=== PATIENT | female | born 1970 | race Caucasian/White ===

== ENCOUNTER 2018-03-21 20:48 | Inpatient (IN) ==
[2018-03-21] MEDS ORDERED: Sod Chloride 0.9% Inj 1,000 ML IV.SIG ONE (21:48)
--- NOTE | 2018-03-21 22:04 | ED ---
HPI General Chief Complaint: Respiratory Symptoms Stated Complaint: chills/cancer pt Time Seen by Provider: 03/21/18 21:46 Source: patient Mode of arrival: ambulatory Limitations: no limitations History of Present Illness HPI Narrative: Patient comes in stating that she has a history of diabetes tubal ligation cholecystectomy sinus surgery hysterectomy. Patient has left breast cancer for which she has has been started on chemo and she has a right port in place. She follows up with Dr. Ortega Patient comes in with a 2-day history of runny nose sore throat, dry cough, chills and low-grade fever. Patient denies any active vomiting or diarrhea, also denies any abdominal pain no flank pain or back pain MD Complaint: Reports fever, cough and rhinorrhea Onset (ago): day(s) (2) Duration: intermittent Severity: mild Severity scale (1-10): 2 Relieving factors: nothing Exacerbating factors: nothing Description of mucous: Reports clear Able to tolerate fluids by mouth: Yes Context: Reports other (However this is happening 7 days after she received chemo); Denies sick contacts Associated symptoms: Reports denies other symptoms Related Data Allergies Allergy/AdvReac Type Severity Reaction Status Date / Time acetaminophen Allergy Hives Verified 03/21/18 21:33 [From Excedrin Migraine] aspirin Allergy Hives Verified 03/21/18 21:33 [From Excedrin Migraine] caffeine Allergy Hives Verified 03/21/18 21:33 [From Excedrin Migraine] meperidine [From Demerol] AdvReac Somnolence Verified 03/21/18 21:33 Review of Systems ROS: all other systems reviewed are negative PMFSH History History Provided By: Patient Medical History Medical History Breast cancer (Acute) Diabetes (Acute) FH: cholecystectomy (Acute) Tubal ligation evaluation (Acute) Surgical History Surgical History H/O sinus surgery (Acute) History of partial hysterectomy (Acute) Social History Social History Substance History: No History of Abuse Second Hand Smoke Exposure: No Smoking Status: Former smoker Tobacco Type: Cigarettes How Often Do You Have a Drink Containing Alcohol: Never Recent Travel in [facility] within the Last 8 Weeks: No Recent Out of Country Travel within the Last 8 Weeks: No Exam Narrative Exam Narrative: GENERAL: female in no acute distress . SKIN: Warm and dry. HEAD: Atraumatic. Normocephalic. EYES: Pupils equal and round. No scleral icterus. No injection or drainage. ENT: No nasal bleeding or discharge. Mucous membranes pink and moist. Mild erythema to oropharynx but without any exudate NECK: Trachea midline. No JVD. CARDIOVASCULAR: Tachycardic rate regular rhythm. no rubs or gallops RESPIRATORY: No accessory muscle use. Clear to auscultation. Breath sounds equal bilaterally. GASTROINTESTINAL: Abdomen soft, non-tender, nondistended. No rebound or guarding MUSCULOSKELETAL: Extremities without clubbing, cyanosis, or edema. No obvious deformities. NEUROLOGICAL: Awake and alert. No obvious cranial nerve deficits. Motor grossly within normal limits. Five out of 5 muscle strength in the arms and legs. Normal speech. PSYCHIATRIC: Appropriate mood and affect; insight and judgment normal. Course Initial Documented Vital Signs Temperature 100.3 F H 03/21/18 21:33 Pulse Rate 121 H 03/21/18 21:33 Respiratory Rate 16 03/21/18 21:33 Blood Pressure 131/79 03/21/18 21:33 Pulse Oximetry 96 03/21/18 21:33 Last Documented Vital Signs Temperature 100.3 F H 03/21/18 21:33 Pulse Rate 121 H 03/21/18 21:33 Respiratory Rate 16 03/21/18 21:33 Blood Pressure 131/79 03/21/18 21:33 Pulse Oximetry 96 03/21/18 21:33 Medical Decision Making [facility] Narrative Medical Screen Exam Complete: Yes Emergency Medical Condition: Yes Medical Records Medical records reviewed: Yes I reviewed the patient's medical records. Discharge Plan Physicians Team ED Provider: Eduardo Gorman Status ED Status: With Doctor
--- NOTE | 2018-03-21 22:08 | XR ---
EXAM DATE: 03/21/2018 10:05 PM EST AGE/SEX: 47 years / Female INDICATIONS: Fever CLINICAL DATA: This is the patient's initial encounter. Patient reports that signs and symptoms have been present for 1 day and indicates a pain score of 0/10. MEDICAL/SURGICAL HISTORY: Non-responsive. Non-responsive. COMPARISON: [facility], XR CHEST FRONTAL, SINGLE VIEW, 03/04/2018. . FINDINGS: A single AP view of the chest demonstrates the lungs to be symmetrically aerated without evidence of mass, infiltrate or effusion. Stable right subclavian [id number]. The cardiomediastinal contours a re unremarkable. Osseous structures are intact. CONCLUSION: 1. No acute cardiopulmonary disease. Electronically signed by: Juan Mcbride MD Board Certified Radiologist 03/21/2018 10:07 PM [facility]
[2018-03-21 22:28] LABS: Hematocrit 35.8 % (35.0-46.0); Hemoglobin 12.8 gm/dL (11.6-15.3); Mean Corpuscular HGB Conc 35.8 % (32.0-36.0); Mean Corpuscular Hemoglobin 31.3 pg (27.0-34.0); Mean Corpuscular Volume 87.5 fL (80.0-100.0); Mean Platelet Volume 7.9 fL (7.0-11.0); Platelet Count 76 th/mm3 (150-450); Red Blood Count 4.09 mil/mm3 (4.00-5.30); Red Cell Distribution Width 12.5 % (11.6-17.2); White Blood Count 0.6 th/mm3 (4.0-11.0)
[2018-03-21 22:49] LABS: Alanine Aminotransferase 63 U/L (10-53); Albumin 3.8 g/dL (3.4-5.0); Anion Gap 8 meq/L (5-15); Aspartate Aminotransferase 23 U/L (15-37); Blood Urea Nitrogen 16 mg/dL (7-18); Calcium 8.8 mg/dL (8.5-10.1); Carbon Dioxide 27.4 meq/L (21.0-32.0); Chloride 101 meq/L (98-107); Glomerular Filtration Rate 87 mL/min (>89); Glucose,Random 316 mg/dL (74-106); Magnesium 1.8 mg/dL (1.5-2.5); Sodium 136 meq/L (136-145)
[2018-03-21 22:52] LABS: Alkaline Phosphatase 185 U/L (45-117); Total Protein 6.9 g/dL (6.4-8.2)
[2018-03-21 23:12] LABS: Eosinophils 12 % (0-4); Lymphocytes 78 % (9-44); Monocytes 3 % (0-8)
[2018-03-21 23:13] LABS: Platelet Morphology Normal (Normal)
[2018-03-21 23:14] LABS: RBC Morphology Normal (Normal)
[2018-03-22] MEDS ORDERED: Acetaminophen 325 MG Tablet PO PRN (00:51)
[2018-03-22] MEDS ORDERED: Bisacodyl 10 MG Supp RECTAL PRN (00:51)
[2018-03-22] MEDS ORDERED: Dextrose 50% in Water 50 ML Vial IV.PUSH PRN (00:55)
--- NOTE | 2018-03-22 01:14 | P.HPIM ---
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 The patient is currently undergoing chemotherapy with her first and only administration on 03/14/18. She reports nausea and vomiting on Sunday. Her nausea has persisted however her vomiting has resolved and she has been able to tolerate food. She states that she took her temperature multiple times at home and did not have a fever. She came into the emergency department because she had shaking chills that persisted. She denies any chest pain or shortness of breath. No cough. No abdominal pain. No focal neurologic deficit. Inpatient Certification Inpatient Certification: I certify that the inpatient services were ordered in accordance with Medicare regulations governing the order. This includes certification that hospital inpatient services are reasonable and necessary and in the case of services not specified as inpatient-only under 42 CFR 419.22(n), that they are appropriately provided as inpatient services in accordance to with the 2-midnight benchmark under 43 CFR 412.3(e) Estimated Total Length of Stay (Days): 3 Plans for Post Hospital Care: Not yet determined Review of Systems Review of Systems: all other systems reviewed are negative [facility] Medical History Medical History Breast cancer (Acute) Diabetes (Acute) FH: cholecystectomy (Acute) Tubal ligation evaluation (Acute) Surgical History Surgical History H/O sinus surgery (Acute) History of partial hysterectomy (Acute) Family History Family History Other Breast cancer Social History Social History Substance History: No History of Abuse Second Hand Smoke Exposure: No Smoking Status: Former smoker Tobacco Type: Cigarettes How Often Do You Have a Drink Containing Alcohol: Never Recent Travel in [facility] within the Last 8 Weeks: No Recent Out of Country Travel within the Last 8 Weeks: No Immunization History Tetanus Immunization: >5 Years Medications and Allergies Allergies Allergy/AdvReac Type Severity Reaction Status Date / Time acetaminophen Allergy Hives Verified 03/21/18 21:33 [From Excedrin Migraine] aspirin Allergy Hives Verified 03/21/18 21:33 [From Excedrin Migraine] caffeine Allergy Hives Verified 03/21/18 21:33 [From Excedrin Migraine] meperidine [From Demerol] AdvReac Somnolence Verified 03/21/18 21:33 Active Medications: Active Medications Al Hydroxide/Mg Hydroxide (Milk Of Magnesia Liq) 30 ml PO Q12H PRN PRN Reason: Mild Constipation Bisacodyl (Dulcolax Supp) 10 mg RECTAL DAILY PRN PRN Reason: SEVERE CONSITIPATION Dextrose (D50w Vial) 50 ml IV.PUSH UNSCH PRN PRN Reason: PER HYPOGLYCEMIA PROTOCOL Enoxaparin Sodium (Lovenox Inj) 40 mg SQ Q24H MICHELLE Glucagon (Glucagon Inj) 1 mg OTHER PRN PRN PRN Reason: for Hypoglycemia Protocol Cefepime HCl 1,000 mg/ Sodium (Chloride) 100 mls @ 200 mls/hr IV.SIG Q8H MICHELLE Sodium Chloride (Ns Inj) 1,000 mls @ 70 mls/hr IV.CONT .[id number] MICHELLE Insulin Aspart (Novolog Insulin Correctional Sugar Inj) 0 unit SQ ACHS AND 3AM MICHELLE; Protocol Lactulose (Lactulose Liq) 30 ml PO DAILY PRN PRN Reason: SEVERE CONSITIPATION Morphine Sulfate (Morphine Inj) 4 mg IV.PUSH Q4H PRN PRN Reason: PAIN SCALE 6 TO 10 Ondansetron HCl (Zofran Inj) 4 mg IV.PUSH Q6H PRN PRN Reason: NAUSEA OR VOMITING Senna/Docusate Sodium (Lucrecia-Colace) 1 tab PO BID MICHELLE Sennosides (Senokot) 17.2 mg PO Q12H PRN PRN Reason: Moderate Constipation Sodium Chloride (Ns Flush) 2 ml IV.FLUSH BID MICHELLE Sodium Chloride (Ns Flush) 2 ml IV.FLUSH PRN PRN PRN Reason: FLUSH AFTER USING IV ACCESS Physical Exam Vital signs: Vital Signs 03/21/18 21:33 03/21/18 22:15 Temperature 100.3 F H Pulse Rate 121 H Respiratory Rate 16 Blood Pressure 131/79 Pulse Oximetry 96 97 Intake & Output 03/21/18 03/21/18 03/22/18 06:59 18:59 06:59 Intake Total 1100 / 1100 Balance 1100 / 1100 Weight 102.512 kg Intake: IV 1100 / 1100 Maxipime Inj 2,000 MG In NS Inj 100 / 100 100 ML @ 200 mls/hr IV.SIG STAT STA Rx#:[id number] NS Inj 1,000 ML @ Wide Open IV. 1000 / 1000 SIG BOLUS ONE Rx#:[id number] Narrative: Gen.: No acute distress Head: Normocephalic. Atraumatic. EENT: Pupils equal round and reactive to light. Nose without drainage. Airway intact. Throat without injection. Cardiovascular: Regular rate and rhythm. No murmurs, rubs or gallops. Respiratory: Lungs clear to auscultation bilaterally. No wheezes or rhonchi. Abdomen: Soft, nontender, nondistended. No peritoneal signs. Musculoskeletal: No gross deformities. No edema. Skin: No obvious rashes or erythema. Neuro: Sensory and motor grossly intact. Cranial nerves II through XII grossly intact. Results Labs CBC & Chem 7: 03/21/18 22:05 03/21/18 22:05 Imaging Impressions Chest X-Ray 03/21/18 21:47 CONCLUSION: 1. No acute cardiopulmonary disease. Caprini VTE Risk Assessment Caprini VTE Risk Assessment: Moderate/High Risk (score >= 2) Caprini Risk Assessment Model: Point Value = 1 Point Value = 2 Point Value = 3 Point Value = 5 Age 41-60 Minor surgery BMI > 25 kg/m2 Swollen legs Varicose veins or History of unexplained or recurrent spontaneous Oral contraceptives or hormone replacement Sepsis (< 1 month) Serious lung disease, including pneumonia (< 1 month) Abnormal pulmonary function Acute myocardial infarction Congestive heart failure (< 1 month) History of inflammatory bowel disease Medical patient at bed rest Age 61-74 Arthroscopic surgery Major open surgery (> 45 min) Laparoscopic surgery (> 45 min) Malignancy Confined to bed (> 72 hours) Immobilizing plaster cast Central venous access Age >= 75 History of VTE Family history of VTE Factor V Leiden Prothrombin [id number] Lupus anticoagulant Anticardiolipin antibodies Elevated serum homocysteine Heparin-induced thrombocytopenia Other congenital or acquired thrombophilia Stroke (< 1 month) Elective arthroplasty Hip, pelvis, or leg fracture Acute spinal cord injury (< 1 month) Prophylaxis Regimen: Total Risk Factor Score Risk Level Prophylaxis Regimen 0-1 Low Early ambulation 2 Moderate Order ONE of the following: *Sequential Compression Device (SCD) *Heparin 5000 units SQ BID 3-4 Higher Order ONE of the following medications: *Heparin 5000 units SQ TID *Enoxaparin/Lovenox 40 mg SQ daily (WT < 150 kg, CrCl > 30 mL/min) *Enoxaparin/Lovenox 30 mg SQ daily (WT < 150 kg, CrCl > 10-29 mL/min) *Enoxaparin/Lovenox 30 mg SQ BID (WT < 150 kg, CrCl > 30 mL/min) AND/OR *Sequential Compression Device (SCD) 5 or more Highest Order ONE of the following medications: *Heparin 5000 units SQ TID (Preferred with Epidurals) *Enoxaparin/Lovenox 40 mg SQ daily (WT < 150 kg, CrCl > 30 mL/min) *Enoxaparin/Lovenox 30 mg SQ daily (WT < 150 kg, CrCl > 10-29 mL/min) *Enoxaparin/Lovenox 30 mg SQ BID (WT < 150 kg, CrCl > 30 mL/min) AND *Sequential Compression Device (SCD) Assessment and Plan Plan Assessment/plan: 1. Neutropenic fever Chest x-ray negative UA pending Cefepime Blood cultures pending Last chemotherapy on 03/14/18 Patient's oncologist, Dr. Ortega consulted, appreciate assistance 2. Diabetes mellitus Holding home metformin Sliding-scale insulin Monitor blood glucose 3. Breast cancer Appreciate oncology recommendations FEN Regular diet Electrolytes: Monitor and replete as needed NS at 70 cc/hour Lovenox
[2018-03-22] MEDS: Morphine Inj 4 MG/ML Vial IV.PUSH PRN ×2 (01:36→05:15)
[2018-03-22] MEDS: Sod Chloride 0.9% Inj 1,000 ML IV.CONT SCH ×2 (01:36→15:51)
[2018-03-22] MEDS: Enoxaparin Inj 40 MG/0.4 ML Syringe SQ SCH (05:08)
[2018-03-22] MEDS: Insulin NovoLOG Aspart Correctional Sugar Inj SQ SCH ×5 (05:08→21:33)
[2018-03-22 08:14] LABS: Bilirubin,Urine Negative (Negative); Clarity,Urine Clear (Clear); Color,Urine Yellow (Yellw/Straw); Glucose,Urine (UA) 500 or Greater mg/dL (Negative); Leukocyte Esterase,Urine Negative (Negative); Mucus,Urine Few /lpf (Occasional); Nitrite,Urine Negative (Negative); Specific Gravity,Urine 1.022 (1.002-1.035); Squamous Epithelial Cell,Urine 1 /hpf (0-5)
[2018-03-22] MEDS: Senna/Docusate Sodium 8.6/50 MG Tablet PO SCH ×2 (09:24→21:32)
--- NOTE | 2018-03-22 14:15 | P.PNIM ---
Subjective Interval history: Patient reports a mild headache. She has some nausea, Zofran is helping. No other issues. No fever this morning. Physical Exam Vital signs: Vital Signs 03/21/18 21:33 03/21/18 22:15 03/22/18 02:35 Temperature 100.3 F H Pulse Rate 121 H 106 H Respiratory Rate 16 16 Blood Pressure 131/79 145/83 H Pulse Oximetry 96 97 03/22/18 03:03 03/22/18 04:00 03/22/18 05:24 Temperature 98.7 F Pulse Rate 105 H Respiratory Rate 16 18 17 Blood Pressure 130/70 Pulse Oximetry 95 03/22/18 08:00 03/22/18 12:00 Temperature 97.9 F 98.1 F Pulse Rate 83 87 Respiratory Rate 20 20 Blood Pressure 127/62 153/74 H Pulse Oximetry 95 95 Intake & Output 03/21/18 03/22/18 03/22/18 18:59 06:59 18:59 Intake Total 1100 / 1100 100 / 100 Balance 1100 / 1100 100 / 100 Weight 104.7 kg Intake: IV 1100 / 1100 100 / 100 Maxipime Inj 1,000 MG In NS Inj 100 / 100 100 ML @ 200 mls/hr IV.SIG Q8H MICHELLE Rx#:[id number] Maxipime Inj 2,000 MG In NS Inj 100 / 100 100 ML @ 200 mls/hr IV.SIG STAT STA Rx#:[id number] NS Inj 1,000 ML @ Wide Open IV. 1000 / 1000 SIG BOLUS ONE Rx#:[id number] Other: # Voids 1 Date of Last Bowel Movement 03/21/18 Weight On Admission 104.7 kg Narrative: Gen.: No acute distress Head: Normocephalic. Atraumatic. EENT: Pupils equal round and reactive to light. Nose without drainage. Airway intact. Throat without injection. Cardiovascular: Regular rate and rhythm. No murmurs, rubs or gallops. Respiratory: Lungs clear to auscultation bilaterally. No wheezes or rhonchi. Abdomen: Soft, nontender, nondistended. No peritoneal signs. Musculoskeletal: No gross deformities. No edema. Skin: No obvious rashes or erythema. Neuro: Sensory and motor grossly intact. Cranial nerves II through XII grossly intact. Results Labs CBC & Chem 7: 03/21/18 22:05 03/21/18 22:05 Labs: Microbiology 03/21/18 22:15 Blood - Peripheral Aerobic Blood Culture - Preliminary No growth in 1 day 03/21/18 22:15 Blood - Peripheral Anaerobic Blood Culture - Preliminary No growth in 1 day 03/21/18 22:05 Blood - Peripheral Aerobic Blood Culture - Preliminary No growth in 1 day 03/21/18 22:05 Blood - Peripheral Anaerobic Blood Culture - Preliminary No growth in 1 day 03/21/18 22:15 Nasal Wash Influenza Types A,B Antigen - Final Negative for FLU A and B antigen Infection due to influenza A or B cannot be ruled out since the antigen present in the sample may be below the detection limit of the test. Imaging Imaging: Impressions Chest X-Ray 03/21/18 21:47 CONCLUSION: 1. No acute cardiopulmonary disease. Assessment and Plan Plan 47-year-old female who is undergoing chemotherapy for breast cancer admitted for neutropenic fever: 1. Neutropenic fever Chest x-ray negative UA unremarkable Continue Cefepime Blood cultures pending Last chemotherapy on 03/14/18 Patient's oncologist, Dr. Ortega consulted, appreciate assistance 2. Diabetes mellitus Holding home metformin Sliding-scale insulin Monitor blood glucose 3. Breast cancer Appreciate oncology recommendations FEN Regular diet Electrolytes: Monitor and replete as needed NS at 70 cc/hour Lovenox
[2018-03-22 14:29] LABS: Hematocrit 32.3 % (35.0-46.0); Hemoglobin 11.5 gm/dL (11.6-15.3); Mean Corpuscular HGB Conc 35.5 % (32.0-36.0); Mean Corpuscular Hemoglobin 31.5 pg (27.0-34.0); Mean Corpuscular Volume 88.8 fL (80.0-100.0); Mean Platelet Volume 7.7 fL (7.0-11.0); Platelet Count 57 th/mm3 (150-450); Red Blood Count 3.64 mil/mm3 (4.00-5.30); Red Cell Distribution Width 12.7 % (11.6-17.2); White Blood Count 0.7 th/mm3 (4.0-11.0)
--- NOTE | 2018-03-22 14:30 | ECG ---
Date Performed: 03/21/2018 Time Performed: 22:27:54 PTAGE: 47 years EKG: SINUS TACHYCARDIA MINIMAL VOLTAGE CRITERIA FOR LVH, CONSIDER NORMAL VARIANT ABNORMAL RHYTHM ECG NO PREVIOUS TRACING DOCTOR: Diana Rose Interpretating Date/Time 03/22/2018 14:29:30
[2018-03-22] MEDS ORDERED: Nystatin/Diphenhydramine/Lidocaine Mouthwash (Adult) 120 ML Botttle SWISH-SWAL PRN (19:53)
[2018-03-22 19:56] LABS: Eosinophils 8 % (0-4); Lymphocytes 77 % (9-44); Monocytes 8 % (0-8)
[2018-03-22 19:57] LABS: Platelet Morphology Normal (Normal); Toxic Granulation 1+
--- NOTE | 2018-03-22 21:24 | MB ---
cc: Deetphi Ortega MD,Gaby Kendrick MD DATE: 03/22/2018 REFERRING PHYSICIAN: Gaby Hilliard MD CHIEF COMPLAINT: Mr. Hilliard requested consultation for Mrs. De Santiago regarding neutropenic fever in a patient with newly diagnosed breast cancer status post adjuvant chemotherapy. HISTORY OF PRESENT ILLNESS: Mrs. De Santiago is a 47-year-old woman with no significant past history. She presented with a palpable mass in the left breast. Diagnostic evaluation included a mammogram on 01/23/2018 that shows a left breast outer lower quadrant spiculated mass. Biopsy on 01/25/2018 shows invasive moderately differentiated ductal carcinoma, grade 2. The tumor was estrogen receptor positive, progesterone receptor positive and HER2/cuba negative. After consideration of risks and benefits of neoadjuvant chemotherapy, she started her first cycle neoadjuvant chemotherapy. She received standard dose of Adriamycin, Cytoxan. She received Neulasta support the following day. She felt tired the following day or two. She had some myalgias and arthralgias associated with the chemotherapy. 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 She came into the clinic to check her labs and follow up on 03/21/2018. She was noted to be neutropenic. Her hemoglobin is normal. Platelet count was low. She was, however, afebrile. She was expected to be at the clint of her counts. That evening, she developed chills and presented to the emergency room. She was found to have a temperature of 100.3. Her temperature at home was normal. She was confirmed to be neutropenic and thrombocytopenic and was admitted for neutropenic fever. She was started on empiric antibiotic therapy. Blood cultures were obtained. They are negative so far. Influenza was negative. She was started on empiric antibiotic therapy. She is feeling better. She denies any localizing symptoms. She feels that her mouth is dry. There are no overt mouth sores. She denies any chest pain or shortness of breath. She has chronic headaches and migraines. She has had headaches related to the nausea medicine. She has pervasive nausea throughout. She is able to eat. Her nausea was worse approximately 3 days after her chemotherapy. She denies any urinary complaints. No diarrhea. She has had constipation. PAST MEDICAL HISTORY: Left breast mass. Diagnosed breast cancer. PAST SURGICAL HISTORY: Left axillary lymph node biopsy, hysterectomy, cholecystectomy, tubal ligation. ALLERGIES: 1. DEMEROL. 2. EXCEDRIN. FAMILY HISTORY: No family history of cancer. SOCIAL HISTORY: She is and lives with her . ALLERGIES: 1. ACETAMINOPHEN. 2. ASPIRIN. 3. CAFFEINE. 4. MEPERIDINE. CURRENT MEDICATIONS: Include: 1. Cefepime. 2. Enoxaparin. 3. NovoLog p.r.n. 4. Lucrecia-Colace. 5. Zofran. 6. Morphine. PHYSICAL EXAMINATION: VITAL SIGNS: Temperature 98.3, heart rate 83, respiratory rate 20, blood pressure 138/68, saturation 94%. GENERAL: Ms. De Santiago is a well-developed, heavyset woman, who looks tired. HEENT: Her pupils are round, reactive to light and accommodation. Oropharynx is clear. No oral lesions. NECK: Supple with no adenopathy. LUNGS: Clear to auscultation. Port site looks clear. CARDIOVASCULAR: Reveals a normal rate and rhythm. ABDOMEN: Large and benign. LOWER EXTREMITIES: No edema. NEUROLOGIC: Nonfocal. BREASTS: Right breast was negative. Bilateral axilla is negative. The left breast mass is still present, but softer. There are some subjective changes of improvement. LABORATORY DATA: Labs as described above. ASSESSMENT AND PLAN: Mrs. De Santiago is a 47-year-old woman with no significant past history who presents with a locally advanced left breast cancer. We reviewed the risks and benefit in neoadjuvant chemotherapy. She has toxicity related to the chemotherapy and is admitted for neutropenic fever. There is no localizing source. I suspect that the fever is related to her neutropenia. We will continue supportive treatment with empiric antibiotic therapy. Cultures will be followed. I anticipate that the fevers would resolve with resolution of her neutropenia. Her migraine regimen is changed to tramadol. I defer from using NSAIDs as not to mask a fever. We will continue to monitor her temperature. She intends to get a different thermometer for home. Magic Mouthwash is offered for the dry mouth, which is suspected to be mucositis. Lactulose is scheduled for her constipation until bowel movement occurs. We held the Zofran, which may cause exacerbation of headaches. Compazine is offered instead. Also scheduled lorazepam as adjunctive therapy to her nausea. Her questions were answered to her satisfaction. We will continue to follow during this hospitalization. Anticipate discharge when ANC is greater than 1500 and she has been afebrile off antibiotic therapy. MD SCOTT Nur/meghan/do , 07:53 PM , 08:04 PM
[2018-03-22] MEDS: LORazepam 0.5 MG Tablet PO SCH (21:31)
[2018-03-23] MEDS: Morphine Inj 4 MG/ML Vial IV.PUSH PRN ×3 (04:17→20:33)
[2018-03-23] MEDS: Insulin NovoLOG Aspart Correctional Sugar Inj SQ SCH ×5 (04:40→20:45)
[2018-03-23 05:12] LABS: Hematocrit 31.1 % (35.0-46.0); Mean Corpuscular HGB Conc 35.3 % (32.0-36.0); Mean Corpuscular Hemoglobin 30.7 pg (27.0-34.0); Platelet Count 67 th/mm3 (150-450); Red Blood Count 3.58 mil/mm3 (4.00-5.30); Red Cell Distribution Width 12.4 % (11.6-17.2); White Blood Count 1.2 th/mm3 (4.0-11.0)
[2018-03-23 05:54] LABS: Eosinophils 6 % (0-4); Lymphocytes 67 % (9-44); Monocytes 7 % (0-8)
[2018-03-23 05:55] LABS: Platelet Morphology Normal (Normal)
[2018-03-23] MEDS: Enoxaparin Inj 40 MG/0.4 ML Syringe SQ SCH (06:16)
[2018-03-23] MEDS: Sod Chloride 0.9% Inj 1,000 ML IV.CONT SCH (06:17)
[2018-03-23 07:01] LABS: Anion Gap 7 meq/L (5-15); Blood Urea Nitrogen 6 mg/dL (7-18); Calcium 8.7 mg/dL (8.5-10.1); Carbon Dioxide 28.3 meq/L (21.0-32.0); Chloride 103 meq/L (98-107); Glomerular Filtration Rate Greater Than 89 mL/min (>89); Glucose,Random 157 mg/dL (74-106); Potassium 3.5 meq/L (3.5-5.1); Sodium 138 meq/L (136-145)
--- NOTE | 2018-03-23 09:36 | P.PNONC ---
Subjective Interval history: Patient alert and sitting up at bedside with breakfast tray. at bedside. Patient reports dry mouth, states that she is drinking water and ice chips for this. Reports no bowel movement since March 19, 2018, denies any nausea, vomiting or abdominal pain this morning. Reports her headache persists. Afebrile. Objective Vital Signs/Intake & Output: Vital Signs 03/22/18 12:00 03/22/18 16:00 03/22/18 20:00 Temperature 98.1 F 98.3 F 97.8 F Pulse Rate 87 83 85 Respiratory Rate 20 20 16 Blood Pressure 153/74 H 137/68 Pulse Oximetry 95 94 L 95 03/22/18 22:30 03/22/18 23:26 03/23/18 00:00 Temperature 98.8 F Pulse Rate 85 102 H 85 Respiratory Rate 16 Blood Pressure 131/70 Pulse Oximetry 94 L 03/23/18 03:26 03/23/18 04:00 Temperature 97.6 F Pulse Rate 82 89 Respiratory Rate 18 Blood Pressure 124/79 Pulse Oximetry 95 Intake & Output 03/22/18 03/23/18 03/23/18 18:59 06:59 18:59 Intake Total 1200 / 1200 1820 / 1820 Output Total 1600 / 1600 Balance 1200 / 1200 220 / 220 Weight 105 kg Intake: IV 1200 / 1200 1100 / 1100 NS Inj 1,000 ML @ 70 mls/hr IV. 1000 / 1000 1000 / 1000 CONT .[id number] [facility] Rx#:[id number] Maxipime Inj 1,000 MG In NS Inj 200 / 200 100 / 100 100 ML @ 200 mls/hr IV.SIG Q8H [facility]HELLE Rx#:[id number] Oral 720 / 720 Output: Urine 1600 / 1600 Other: # Voids 4 Date of Last Bowel Movement 03/21/18 Result Diagrams: 03/23/18 03:45 03/23/18 03:45 Laboratory Results: Laboratory Results - last 24 hr 03/22/18 03/22/18 03/22/18 12:08 13:29 17:19 WBC 0.7 L RBC 3.64 L Hgb 11.5 L Hct 32.3 L MCV 88.8 MCH 31.5 MCHC 35.5 RDW 12.7 Plt Count 57 L MPV 7.7 Prelim Diff (Auto) Manual diff required WBC Differential Manual diff final Seg Neuts % (Manual) 3 L Band Neuts % (Manual) 3 Lymphocytes % (Manual) 77 H Monocytes % (Manual) 8 Eosinophils % (Manual) 8 H Basophils % (Manual) 1 Abs Neuts (Manual) 0.0 L* Differential Comment . Toxic Granulation 1+ H Platelet Estimate Low L Platelet Morphology Normal Sodium Potassium Chloride Carbon Dioxide Anion Gap BUN Creatinine Estimated GFR POC Glucose 227 H 199 H Random Glucose Calcium 03/22/18 03/23/18 03/23/18 20:51 03:37 03:45 WBC 1.2 L D RBC 3.58 L Hgb 11.0 L Hct 31.1 L MCV 87.0 MCH 30.7 MCHC 35.3 RDW 12.4 Plt Count 67 L MPV 8.0 Prelim Diff (Auto) Manual diff required WBC Differential Manual diff final Seg Neuts % (Manual) 10 L Band Neuts % (Manual) 7 H Lymphocytes % (Manual) 67 H Monocytes % (Manual) 7 Eosinophils % (Manual) 6 H Basophils % (Manual) 3 H Abs Neuts (Manual) 0.2 L* Differential Comment . Toxic Granulation Platelet Estimate Low L Platelet Morphology Normal Sodium Potassium Chloride Carbon Dioxide Anion Gap BUN Creatinine Estimated GFR POC Glucose 217 H 169 H Random Glucose Calcium 03/23/18 03/23/18 03:45 08:20 WBC RBC Hgb Hct MCV MCH MCHC RDW Plt Count MPV Prelim Diff (Auto) WBC Differential Seg Neuts % (Manual) Band Neuts % (Manual) Lymphocytes % (Manual) Monocytes % (Manual) Eosinophils % (Manual) Basophils % (Manual) Abs Neuts (Manual) Differential Comment Toxic Granulation Platelet Estimate Platelet Morphology Sodium 138 Potassium 3.5 Chloride 103 Carbon Dioxide 28.3 Anion Gap 7 BUN 6 L Creatinine 0.51 Estimated GFR Greater than 89 POC Glucose 225 H Random Glucose 157 H D Calcium 8.7 Culture Results: Microbiology 03/21/18 22:15 Aerobic Blood Culture - Preliminary Blood - Peripheral No growth in 1 day Anaerobic Blood Culture - Preliminary No growth in 1 day 03/21/18 22:05 Aerobic Blood Culture - Preliminary Blood - Peripheral No growth in 1 day Anaerobic Blood Culture - Preliminary No growth in 1 day 03/21/18 22:15 Influenza Types A,B Antigen - Final Nasal Wash Negative for FLU A and B antigen Infection due to influenza A or B cannot be ruled out since the antigen present in the sample may be below the detection limit of the test. Medications: Active Medications Generic Name Dose Route Start Last Admin Trade Name Freq PRN Reason Stop Dose Admin Enoxaparin Sodium 40 mg 03/22/18 06:00 03/23/18 06:16 Lovenox Inj SQ 40 mg Q24H MICHELLE Administration Sodium Chloride 1,000 mls @ 70 mls/hr 03/22/18 01:00 03/23/18 06:17 Ns Inj IV.CONT 70 mls/hr .[id number] MICHELLE Administration Insulin Aspart 0 unit 03/22/18 03:00 03/23/18 04:40 Novolog Insulin Correctional Sugar Inj SQ 1 unit ACHS AND 3AM MICHELLE Administration Protocol Lactulose 30 ml 03/22/18 19:30 03/22/18 21:36 Lactulose Liq PO 03/24/18 09:01 Not Given DAILY MICHELLE Lorazepam 0.5 mg 03/22/18 21:00 03/22/18 21:31 Ativan PO 03/24/18 20:59 0.5 mg Q12HR MICHELLE Administration Morphine Sulfate 4 mg 03/22/18 14:13 03/23/18 04:17 Morphine Inj IV.PUSH 4 mg Q4H PRN Administration BREAKTHROUGH PAIN Ondansetron HCl 4 mg 03/22/18 00:51 03/22/18 17:13 Zofran Inj IV.PUSH 4 mg Q6H PRN Administration NAUSEA OR VOMITING Prochlorperazine Maleate 10 mg 03/22/18 19:35 03/23/18 06:41 Compazine PO 10 mg Q6H PRN Administration NAUSEA OR VOMITING Senna/Docusate Sodium 1 tab 03/22/18 09:00 03/22/18 21:32 Lucrecia-Colace PO 1 tab BID MICHELLE Administration Sodium Chloride 2 ml 03/22/18 09:00 03/22/18 21:32 Ns Flush IV.FLUSH 2 ml BID MICHELLE Administration Tramadol HCl 50 mg 03/22/18 19:34 03/23/18 06:16 Ultram PO 50 mg Q8H PRN Administration HEADACHE Objective Remarks: GENERAL: Well-nourished, well-developed female patient. SKIN: Pale, warm and dry. HEAD: Normocephalic. EYES: No scleral icterus. No injection or drainage. MOUTH: Mucous membranes dry, pale. Red patches noted to the tongue. NECK: Supple, trachea midline. CARDIOVASCULAR: Regular rate and rhythm without murmurs. RESPIRATORY: Posterior breath sounds clear and equal bilaterally. No accessory muscle use. GASTROINTESTINAL: Abdomen rounded, soft, non-tender, nondistended. EXTREMITIES: No cyanosis, or edema. MUSCULOSKELETAL: Adequate muscle tone. NEUROLOGICAL: No obvious focal deficit. Awake, alert, and oriented x3. PSYCHIATRIC: Appropriate mood and affect; insight and judgment normal. 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 Status post adjuvant chemotherapy with Adriamycin and Cytoxan. Patient admitted to the hospital with neutropenic fever and thrombocytopenia. Plan: 1. Neutropenic, ANC 0.2. Neulasta given outpatient prior to admission. We will continue to monitor ANC. Blood cultures negative times 1 day, negative flu. Cefepime increased to 2 g IV every 8 hours. 2. Mucositis, will change Magic mouthwash order to clotrimazole troches. 3. We will discuss lactulose orders for constipation with RN. 4. CBC in a.m. - Attending Statement The exam, history, and the medical decision-making described in the above note were completed with the assistance of the mid-level provider. I reviewed and agree with the findings presented. I attest that I had a [id number] encounter with the patient on the same day, and personally performed and documented my assessment and findings in the medical record. Complaining of mouth sores Patient moved her bowel this evening No more fevers Complaining of weakness ANC 200 Blood cultures so far negative Antibiotic dosing adjusted Monitor CBC Discussed with patient and her
[2018-03-23] MEDS: Senna/Docusate Sodium 8.6/50 MG Tablet PO SCH ×2 (09:38→20:34)
[2018-03-23] MEDS: LORazepam 0.5 MG Tablet PO SCH ×2 (09:38→20:44)
[2018-03-23] MEDS: Clotrimazole 10 MG Troche BUCCAL SCH ×4 (10:00→21:37)
--- NOTE | 2018-03-23 17:07 | P.PNIM ---
Subjective Interval history: Nursing denies any deterioration since last night. Patient herself denies any fever or nausea. Reports he has a headache but says this is , like a chronic migraine. Still reports having a stuffy nose. Denies any abdominal pain or diarrhea. Physical Exam Vital signs: Vital Signs 03/22/18 20:00 03/22/18 22:30 03/22/18 23:26 Temperature 97.8 F Pulse Rate 85 85 102 H Respiratory Rate 16 Blood Pressure Pulse Oximetry 95 03/23/18 00:00 03/23/18 03:26 03/23/18 04:00 Temperature 98.8 F 97.6 F Pulse Rate 85 82 89 Respiratory Rate 16 18 Blood Pressure 131/70 124/79 Pulse Oximetry 94 L 95 03/23/18 07:00 03/23/18 11:00 Temperature Pulse Rate 85 72 Respiratory Rate Blood Pressure Pulse Oximetry Intake & Output 03/22/18 03/23/18 03/23/18 18:59 06:59 18:59 Intake Total 1200 / 1200 1820 / 1820 100 / 100 Output Total 1600 / 1600 Balance 1200 / 1200 220 / 220 100 / 100 Weight 105 kg Intake: IV 1200 / 1200 1100 / 1100 100 / 100 NS Inj 1,000 ML @ 70 mls/hr IV. 1000 / 1000 1000 / 1000 CONT .[id number] [facility] Rx#:[id number] Maxipime Inj 1,000 MG In NS Inj 200 / 200 100 / 100 100 ML @ 200 mls/hr IV.SIG Q8H [facility] Rx#:[id number] Maxipime Inj 2,000 MG In NS Inj 100 / 100 100 ML @ 200 mls/hr IV.SIG Q8H [facility] Rx#:[id number] Oral 720 / 720 Output: Urine 1600 / 1600 Other: # Voids 4 Date of Last Bowel Movement 03/21/18 Narrative: Bilateral mild maxillary tenderness to palpation Clear lungs bilaterally, unlabored breathing Heart sounds regular rate and rhythm Abdomen soft, nontender, nondistended Results Labs CBC & Chem 7: 03/23/18 03:45 03/23/18 03:45 Labs: Microbiology 03/21/18 22:15 Blood - Peripheral Aerobic Blood Culture - Preliminary No growth in 2 days 03/21/18 22:15 Blood - Peripheral Anaerobic Blood Culture - Preliminary No growth in 2 days 03/21/18 22:05 Blood - Peripheral Aerobic Blood Culture - Preliminary No growth in 2 days 03/21/18 22:05 Blood - Peripheral Anaerobic Blood Culture - Preliminary No growth in 2 days Assessment and Plan Plan 47-year-old white female breast cancer admitted with neutropenic fever Neutropenic fever Blood cultures negative with no recurrence of fever On cefepime per oncology Neutropenia Likely secondary to breast cancer/chemotherapy Improving general white counts, abs neutrophils mild increase to 0.2. Patient likely has a viral infection due to the low-grade fever of 100.3 with persistence of her URI symptoms. Can be discharged once cleared with oncology w / stable neutrophil numbers.
[2018-03-24] MEDS: Insulin NovoLOG Aspart Correctional Sugar Inj SQ SCH ×5 (03:21→21:09)
[2018-03-24] MEDS: Clotrimazole 10 MG Troche BUCCAL SCH ×5 (05:10→21:10)
[2018-03-24] MEDS: Enoxaparin Inj 40 MG/0.4 ML Syringe SQ SCH (05:10)
[2018-03-24 06:03] LABS: Baso % (Auto) 1.7 % (0.0-2.0); Eos # (Auto) 0.1 th/mm3 (0.0-0.4); Eos % (Auto) 3.7 % (0.0-4.0); Hematocrit 30.2 % (35.0-46.0); Hemoglobin 10.9 gm/dL (11.6-15.3); Lymph # (Auto) 0.7 th/mm3 (1.0-4.8); Mean Corpuscular Hemoglobin 31.6 pg (27.0-34.0); Mean Platelet Volume 7.7 fL (7.0-11.0); Mono # (Auto) 0.3 th/mm3 (0.0-0.9); Mono % (Auto) 15.5 % (0.0-8.0); Neut # (Auto) 0.6 th/mm3 (1.8-7.7); Neut % (Auto) 37.1 % (16.0-70.0); Platelet Count 81 th/mm3 (150-450); Red Blood Count 3.43 mil/mm3 (4.00-5.30); Red Cell Distribution Width 12.3 % (11.6-17.2); White Blood Count 1.7 th/mm3 (4.0-11.0)
[2018-03-24] MEDS: Sod Chloride 0.9% Inj 1,000 ML IV.CONT SCH ×3 (06:17→20:30)
[2018-03-24 08:18] LABS: Dohle Bodies Present; Eosinophils 8 % (0-4); Lymphocytes 47 % (9-44); Monocytes 6 % (0-8); Toxic Granulation 3+
[2018-03-24 08:19] LABS: Platelet Morphology Normal (Normal)
[2018-03-24] MEDS: Senna/Docusate Sodium 8.6/50 MG Tablet PO SCH ×2 (08:40→20:29)
[2018-03-24] MEDS: LORazepam 0.5 MG Tablet PO SCH (08:40)
--- NOTE | 2018-03-24 12:32 | P.PNONC ---
Subjective Interval history: Patient sitting up in bed talking on the phone with her [id number] while eating lunch. Reports sores in her mouth causing pain while eating. States one episode of vomiting this morning, reports nausea improved after having a bowel movement. States 3 bowel movements total today. Reports wearing pull-up for minimal urinary leakage with vomiting. Denies any fever, bleeding, chest pain or shortness of breath. Objective Vital Signs/Intake & Output: Vital Signs 03/23/18 15:00 03/23/18 19:00 03/23/18 20:00 Temperature 98.1 F Pulse Rate 80 84 88 Respiratory Rate 16 Blood Pressure 119/90 Pulse Oximetry 98 03/23/18 23:00 03/24/18 00:00 03/24/18 03:00 Temperature 97.6 F Pulse Rate 72 72 70 Respiratory Rate 18 Blood Pressure 124/74 Pulse Oximetry 95 03/24/18 03:16 03/24/18 08:00 Temperature 97.9 F 97.9 F Pulse Rate 79 72 Respiratory Rate 18 16 Blood Pressure 124/75 128/87 Pulse Oximetry 98 95 Intake & Output 03/23/18 03/24/18 03/24/18 18:59 06:59 18:59 Intake Total 440 / 440 1580 / 1580 100 / 100 Output Total 1400 / 1400 1400 / 1400 Balance -960 / -960 180 / 180 100 / 100 Weight 103.45 kg Intake: IV 200 / 200 1100 / 1100 100 / 100 NS Inj 1,000 ML @ 70 mls/hr IV. 1000 / 1000 CONT .[id number] [facility] Rx#:[id number] Maxipime Inj 2,000 MG In NS Inj 200 / 200 100 / 100 100 / 100 100 ML @ 200 mls/hr IV.SIG Q8H [facility] Rx#:[id number] Oral 240 / 240 480 / 480 Output: Urine 1400 / 1400 1400 / 1400 Other: Date of Last Bowel Movement 03/21/18 03/20/18 Result Diagrams: 03/24/18 05:34 03/23/18 03:45 Laboratory Results: Laboratory Results - last 24 hr 03/23/18 03/23/18 03/24/18 17:26 20:29 03:21 WBC RBC Hgb Hct MCV MCH MCHC RDW Plt Count MPV Prelim Diff (Auto) Neut % (Auto) Lymph % (Auto) [place] % (Auto) Eos % (Auto) Baso % (Auto) Neut # (Auto) Lymph # (Auto) [place] # (Auto) Eos # (Auto) Baso # (Auto) WBC Differential Seg Neuts % (Manual) Band Neuts % (Manual) Lymphocytes % (Manual) Monocytes % (Manual) Eosinophils % (Manual) Basophils % (Manual) Abs Neuts (Manual) Differential Comment Toxic Granulation Dohle Bodies Platelet Estimate Platelet Morphology POC Glucose 168 H 233 H 167 H 03/24/18 03/24/18 03/24/18 05:34 08:07 11:29 WBC 1.7 L RBC 3.43 L Hgb 10.9 L Hct 30.2 L MCV 88.0 MCH 31.6 MCHC 36.0 RDW 12.3 Plt Count 81 L MPV 7.7 Prelim Diff (Auto) Slide review pending Neut % (Auto) 37.1 Lymph % (Auto) 42.0 [place] % (Auto) 15.5 H Eos % (Auto) 3.7 Baso % (Auto) 1.7 Neut # (Auto) 0.6 L Lymph # (Auto) 0.7 L [place] # (Auto) 0.3 Eos # (Auto) 0.1 Baso # (Auto) 0.0 WBC Differential Manual diff final Seg Neuts % (Manual) 29 Band Neuts % (Manual) 9 H Lymphocytes % (Manual) 47 H Monocytes % (Manual) 6 Eosinophils % (Manual) 8 H Basophils % (Manual) 1 Abs Neuts (Manual) 0.6 L Differential Comment . Toxic Granulation 3+ H Dohle Bodies Present H Platelet Estimate Low L Platelet Morphology Normal POC Glucose 215 H 239 H Culture Results: Microbiology 03/21/18 22:15 Aerobic Blood Culture - Preliminary Blood - Peripheral No growth in 3 days Anaerobic Blood Culture - Preliminary No growth in 3 days 03/21/18 22:05 Aerobic Blood Culture - Preliminary Blood - Peripheral No growth in 3 days Anaerobic Blood Culture - Preliminary No growth in 3 days 03/21/18 22:15 Influenza Types A,B Antigen - Final Nasal Wash Negative for FLU A and B antigen Infection due to influenza A or B cannot be ruled out since the antigen present in the sample may be below the detection limit of the test. Medications: Active Medications Generic Name Dose Route Start Last Admin Trade Name Freq PRN Reason Stop Dose Admin Clotrimazole 10 mg 03/23/18 10:00 03/24/18 10:44 Mycelex Lupe BUCCAL 10 mg 5 TIMES A DAY MICHELLE Administration Enoxaparin Sodium 40 mg 03/22/18 06:00 03/24/18 05:10 Lovenox Inj SQ 40 mg Q24H MICHELLE Administration Sodium Chloride 1,000 mls @ 70 mls/hr 03/22/18 01:00 03/24/18 06:17 Ns Inj IV.CONT 70 mls/hr .[id number] MICHELLE Administration Cefepime HCl 2,000 mg/ Sodium 100 mls @ 200 mls/hr 03/23/18 09:00 03/24/18 10 :37 Chloride IV.SIG Infused Q8H MICHELLE Infusion Insulin Aspart 0 unit 03/22/18 03:00 03/24/18 11:57 Novolog Insulin Correctional Sugar Inj SQ 3 unit ACHS AND 3AM MIHCELLE Administration Protocol Lorazepam 0.5 mg 03/22/18 21:00 03/24/18 08:40 Ativan PO 03/24/18 20:59 0.5 mg Q12HR MICHELLE Administration Morphine Sulfate 4 mg 03/22/18 14:13 03/23/18 20:33 Morphine Inj IV.PUSH 4 mg Q4H PRN Administration BREAKTHROUGH PAIN Ondansetron HCl 4 mg 03/22/18 00:51 03/22/18 17:13 Zofran Inj IV.PUSH 4 mg Q6H PRN Administration NAUSEA OR VOMITING Prochlorperazine Maleate 10 mg 03/22/18 19:35 03/24/18 05:18 Compazine PO 10 mg Q6H PRN Administration NAUSEA OR VOMITING Senna/Docusate Sodium 1 tab 03/22/18 09:00 03/24/18 08:40 Lucrecia-Colace PO 1 tab BID MICHELLE Administration Sodium Chloride 2 ml 03/22/18 09:00 03/24/18 10:37 Ns Flush IV.FLUSH Not Given BID [facility] Tramadol HCl 50 mg 03/22/18 19:34 03/24/18 11:58 Ultram PO 50 mg Q8H PRN Administration HEADACHE Objective Remarks: GENERAL: Well-nourished, well-developed female patient. SKIN: Pale, warm and dry. HEAD: Normocephalic. EYES: No scleral icterus. No injection or drainage. MOUTH: Mucous membranes dry, pale. Ulcerations noted to left upper and lower gums. NECK: Supple, trachea midline. CARDIOVASCULAR: Regular rate and rhythm without murmurs. RESPIRATORY: Posterior breath sounds clear and equal bilaterally. No accessory muscle use. GASTROINTESTINAL: Abdomen rounded, soft, non-tender, nondistended. EXTREMITIES: No cyanosis, or edema. MUSCULOSKELETAL: Adequate muscle tone. NEUROLOGICAL: No obvious focal deficit. Awake, alert, and oriented x3. PSYCHIATRIC: Appropriate mood and affect; insight and judgment normal. 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 Status post adjuvant chemotherapy with Adriamycin and Cytoxan. Patient admitted to the hospital with neutropenic fever and thrombocytopenia. Plan: 1. Neutropenic, ANC 0.6. Afebrile. Neulasta given outpatient prior to admission. We will continue to monitor ANC. Blood cultures negative times 3 days, negative flu. Continues on antibiotic therapy. Continue neutropenic precautions per protocol. 2. Mucositis, continue clotrimazole troches, will add viscous lidocaine. 3. Constipation relieved by lactulose. 4. CBC in a.m. - Attending Statement The exam, history, and the medical decision-making described in the above note were completed with the assistance of the mid-level provider. I reviewed and agree with the findings presented. I attest that I had a [id number] encounter with the patient on the same day, and personally performed and documented my assessment and findings in the medical record. Complaining of mouth sores Does not have any fever Patient had a bowel movement when she is feeling better since then ANC is still less than 1000. Recommend to continue the same antibiotic for now. Home soon
--- NOTE | 2018-03-24 15:59 | P.PNIM ---
Subjective Interval history: Patient reports having some nausea and vomiting this morning on an empty stomach. Otherwise has been able to tolerate p.o. intake. Denies any other new symptoms, seems relaxed. Says her congestion is improved. Physical Exam Vital signs: Vital Signs 03/23/18 19:00 03/23/18 20:00 03/23/18 23:00 Temperature 98.1 F Pulse Rate 84 88 72 Respiratory Rate 16 Blood Pressure 119/90 Pulse Oximetry 98 03/24/18 00:00 03/24/18 03:00 03/24/18 03:16 Temperature 97.6 F 97.9 F Pulse Rate 72 70 79 Respiratory Rate 18 18 Blood Pressure 124/74 124/75 Pulse Oximetry 95 98 03/24/18 08:00 03/24/18 11:00 03/24/18 12:00 Temperature 97.9 F 96.7 F L Pulse Rate 76 78 82 Respiratory Rate 16 16 Blood Pressure 128/87 126/68 Pulse Oximetry 95 97 Intake & Output 03/23/18 03/24/18 03/24/18 18:59 06:59 18:59 Intake Total 440 / 440 1580 / 1580 100 / 100 Output Total 1400 / 1400 1400 / 1400 Balance -960 / -960 180 / 180 100 / 100 Weight 103.45 kg Intake: IV 200 / 200 1100 / 1100 100 / 100 NS Inj 1,000 ML @ 70 mls/hr IV. 1000 / 1000 CONT .[id number] [facility] Rx#:[id number] Maxipime Inj 2,000 MG In NS Inj 200 / 200 100 / 100 100 / 100 100 ML @ 200 mls/hr IV.SIG Q8H [facility] Rx#:[id number] Oral 240 / 240 480 / 480 Output: Urine 1400 / 1400 1400 / 1400 Other: Date of Last Bowel Movement 03/21/18 03/20/18 Narrative: Lying in bed, awake, alert, no acute distress Clear lungs bilaterally, unlabored breathing Heart sounds regular rate and rhythm Abdomen soft, minimal diffuse tenderness to palpation, benign otherwise Results Labs CBC & Chem 7: 03/24/18 05:34 03/23/18 03:45 Labs: Microbiology 03/21/18 22:15 Blood - Peripheral Aerobic Blood Culture - Preliminary No growth in 3 days 03/21/18 22:15 Blood - Peripheral Anaerobic Blood Culture - Preliminary No growth in 3 days 03/21/18 22:05 Blood - Peripheral Aerobic Blood Culture - Preliminary No growth in 3 days 03/21/18 22:05 Blood - Peripheral Anaerobic Blood Culture - Preliminary No growth in 3 days Assessment and Plan Plan 47-year-old white female w/ breast cancer admitted with neutropenic fever Neutropenic fever Blood cultures negative with no recurrence of fever On cefepime per oncology Neutropenia Likely secondary to breast cancer/chemotherapy Improving general white counts, abs neutrophils mild increase to 0.2. Now at 0.6 Patient likely has a viral infection due to the low-grade fever of 100.3 with persistence of her URI symptoms. Can be discharged once cleared with oncology w / stable neutrophil numbers likely greater than 1.
[2018-03-24] MEDS: Morphine Inj 4 MG/ML Vial IV.PUSH PRN (17:34)
[2018-03-25] MEDS: Sod Chloride 0.9% Inj 1,000 ML IV.CONT SCH (00:14)
[2018-03-25 03:10] VITALS: BP 133/73; TEMP 96.7; O2SAT 93
[2018-03-25] MEDS: Insulin NovoLOG Aspart Correctional Sugar Inj SQ SCH ×2 (03:18→09:08)
[2018-03-25] MEDS: Morphine Inj 4 MG/ML Vial IV.PUSH PRN ×2 (03:29→09:00)
[2018-03-25 03:35] LABS: Baso % (Auto) 0.6 % (0.0-2.0); Eos # (Auto) 0.1 th/mm3 (0.0-0.4); Hemoglobin 10.9 gm/dL (11.6-15.3); Lymph % (Auto) 34.4 % (9.0-44.0); Mean Corpuscular Hemoglobin 31.2 pg (27.0-34.0); Mean Corpuscular Volume 86.1 fL (80.0-100.0); Mean Platelet Volume 7.6 fL (7.0-11.0); Mono # (Auto) 0.4 th/mm3 (0.0-0.9); Neut # (Auto) 1.4 th/mm3 (1.8-7.7); Platelet Count 112 th/mm3 (150-450); Red Blood Count 3.48 mil/mm3 (4.00-5.30); Red Cell Distribution Width 12.1 % (11.6-17.2); White Blood Count 2.9 th/mm3 (4.0-11.0)
[2018-03-25 03:36] LABS: Mean Corpuscular HGB Conc 36.2 % (32.0-36.0)
[2018-03-25 05:45] LABS: Eosinophils 1 % (0-4); Lymphocytes 40 % (9-44); Metamyelocytes 1 % (0-1); Monocytes 11 % (0-8)
[2018-03-25 05:47] LABS: Platelet Morphology Normal (Normal)
[2018-03-25] MEDS: Clotrimazole 10 MG Troche BUCCAL SCH ×2 (06:19→09:01)
[2018-03-25] MEDS: Enoxaparin Inj 40 MG/0.4 ML Syringe SQ SCH (06:19)
[2018-03-25] MEDS: Senna/Docusate Sodium 8.6/50 MG Tablet PO SCH (09:01)
--- NOTE | 2018-03-25 09:05 | P.DS ---
DS: Providers Date of admission: 03/21/18 23:20 Primary care physician: No Primary Care Physician Consults: 03/22/18 00:51 Consult to Oncology Routine Consulting Provider: Deepthi Ortega Preferred Electric Deicer Assembler:: Deepthi Ortega Reason for Consultation: Neutropenic fever in patient with breast cancer status post chemotherapy on 03/14 Notified:: Service Spoke with:: shmuel Date Notified:: 03/22/18 Time Notified:: 03:05 Ordering Provider: LOU DS: Summary Patient was started on treatment for neutropenic fever with antibiotics and workup. Blood cultures and chest x-ray and urine were all negative. Fever did not recur, tmax 100.3. Neutrophils eventually climbed to 1.4. Patient has met maximal benefit from hospitalization is clinically stable for discharge. Patient reports having chronic nausea but has been able to tolerate p.o. intake. Time Spent with Patient Total time spent providing and/or coordinating discharge services: Exam Narrative Exam Narrative: Lying in bed, sleeping, easily awoken, no acute distress Clear lungs bilaterally, unlabored breathing Heart sounds regular rate and rhythm, no murmurs No lower extremity edema Abdomen nondistended Moves all 4 extremity spontaneously Results Labs on day of discharge: Labs from last 24 hours 03/25/18 03/25/18 03/25/18 08:03 03:10 03:05 WBC 2.9 L D RBC 3.48 L Hgb 10.9 L Hct 30.0 L MCV 86.1 MCH 31.2 MCHC 36.2 H RDW 12.1 Plt Count 112 L D MPV 7.6 Prelim Diff (Auto) Slide review pending Neut % (Auto) 49.0 Lymph % (Auto) 34.4 [place] % (Auto) 14.0 H Eos % (Auto) 2.0 Baso % (Auto) 0.6 Neut # (Auto) 1.4 L Lymph # (Auto) 1.0 [place] # (Auto) 0.4 Eos # (Auto) 0.1 Baso # (Auto) 0.0 WBC Differential Manual diff final Seg Neuts % (Manual) 42 Band Neuts % (Manual) 5 Lymphocytes % (Manual) 40 Monocytes % (Manual) 11 H Eosinophils % (Manual) 1 Metamyelocytes % (Man) 1 Abs Neuts (Manual) 1.4 L Differential Comment . Platelet Estimate Low L Platelet Morphology Normal POC Glucose 210 H 177 H 03/24/18 03/24/18 03/24/18 20:28 16:31 11:29 WBC RBC Hgb Hct MCV MCH MCHC RDW Plt Count MPV Prelim Diff (Auto) Neut % (Auto) Lymph % (Auto) [place] % (Auto) Eos % (Auto) Baso % (Auto) Neut # (Auto) Lymph # (Auto) [place] # (Auto) Eos # (Auto) Baso # (Auto) WBC Differential Seg Neuts % (Manual) Band Neuts % (Manual) Lymphocytes % (Manual) Monocytes % (Manual) Eosinophils % (Manual) Metamyelocytes % (Man) Abs Neuts (Manual) Differential Comment Platelet Estimate Platelet Morphology POC Glucose 261 H 128 H 239 H Preliminary micro results at discharge 03/21/18 22:15 Aerobic Blood Culture - Preliminary Blood - Peripheral No growth in 3 days Anaerobic Blood Culture - Preliminary No growth in 3 days 03/21/18 22:05 Aerobic Blood Culture - Preliminary Blood - Peripheral No growth in 3 days Anaerobic Blood Culture - Preliminary No growth in 3 days Impressions ITS Impressions Chest X-Ray 03/21/18 21:47 CONCLUSION: 1. No acute cardiopulmonary disease. Discharge Plan Discharge Disposition Patient Disposition: Discharge Home Discharge Condition Condition: Stable Discharge Order Discharge Orders: Discharge Order (Routine); Ordered 03/25/18 Ordered By: James Osborn Discharge Details Discharge Comment: DC if cleared with oncology Physicians Team ED Provider: Eduardo Gorman Primary Care Provider: Primary Cinthia Holcomb Attending Provider: James Osborn Other Providers: Deepthi Ortega Rxs /Orders / Referrals /Forms Prescriptions: Continue metformin 500 mg Tablet 500 mg PO DAILY RF: 0 Referrals: Primary Care Cinthia Taylor [Primary Care Provider] - See Instructions Deepthi Ortega MD [Physician] - 03/28/18 9:30 am Discharge Instructions Patient Printed Instructions: Neutropenia (DC) Additional Instructions: If fever occurs, contact your oncologist or if afterhours go to ED. You may resume taking home headache medications. Your Health Problems: neutropenic fever Goals to Promote Your Health: * To prevent worsening of your condition * To maintain your health at the optimal level Directions to Meet Your Goals: * Take your medications as prescribed * Follow your dietary instruction * Follow activity as directed * Keep your appointments as scheduled * Take your immunizations and boosters as scheduled * If your symptoms worsen call your PCP * If no PCP go to Urgent Care or Emergency Room Smoking is dangerous to your health. Avoid second hand smoke. You may reach the 24-hour crisis hotline for domestic abuse at . Post Discharge Care Plan Care Plan Goals: Your Health Problems: neutropenic fever Goals to Promote Your Health: * To prevent worsening of your condition * To maintain your health at the optimal level Directions to Meet Your Goals: * Take your medications as prescribed * Follow your dietary instruction * Follow activity as directed * Keep your appointments as scheduled * Take your immunizations and boosters as scheduled * If your symptoms worsen call your PCP * If no PCP go to Urgent Care or Emergency Room Smoking is dangerous to your health. Avoid second hand smoke. You may reach the 24-hour crisis hotline for domestic abuse at . Status ED Status: Left Department Discharge Information Discharge Date/Time: 03/25/18 11:33
--- NOTE | 2018-03-25 09:32 | P.PNONC ---
Subjective Interval history: Afebrile. Patient ambulating in dark room. She states she has a migraine. She reports this is typical for her headaches. She just received a dose of morphine. Discussed possible discharge today. She states she wants to go home as it is too hot here. Discussed follow-up tomorrow in the clinic with the nurse practitioner, the patient is unable to go to the [facility] as she will be by herself tomorrow. She will call today when her headache eases up and try to schedule a follow-up in [facility] tomorrow or Sunday. Objective Vital Signs/Intake & Output: Vital Signs 03/24/18 11:00 03/24/18 12:00 03/24/18 15:00 Temperature 96.7 F L Pulse Rate 78 82 78 Respiratory Rate 16 Blood Pressure 126/68 Pulse Oximetry 97 03/24/18 16:00 03/24/18 20:05 03/24/18 20:13 Temperature 97.0 F L 98.1 F Pulse Rate 81 86 81 Respiratory Rate 16 16 Blood Pressure 127/71 134/74 Pulse Oximetry 94 L 95 03/25/18 00:03 03/25/18 00:18 03/25/18 03:07 Temperature 97 F L 96.7 F L Pulse Rate 115 H 84 79 Respiratory Rate 16 16 Blood Pressure 138/65 133/73 Pulse Oximetry 94 L 93 L 03/25/18 04:06 Temperature Pulse Rate 74 Respiratory Rate Blood Pressure Pulse Oximetry Intake & Output 03/24/18 03/25/18 03/25/18 18:59 06:59 18:59 Intake Total 1340 / 1340 1350 / 1350 Output Total 1200 / 1200 1850 / 1850 Balance 140 / 140 -500 / -500 Weight 103.3 kg Intake: IV 200 / 200 1110 / 1110 NS Inj 1,000 ML @ 70 mls/hr IV. 1000 / 1000 CONT .[id number] MICHELLE Rx#:[id number] Maxipime Inj 2,000 MG In NS Inj 200 / 200 110 / 110 100 ML @ 200 mls/hr IV.SIG Q8H MICHELLE Rx#:[id number] Oral 1140 / 1140 240 / 240 Output: Urine 1200 / 1200 1850 / 1850 Other: Date of Last Bowel Movement 03/24/18 Result Diagrams: 03/25/18 03:10 03/23/18 03:45 Laboratory Results: Laboratory Results - last 24 hr 03/24/18 03/24/18 03/24/18 11:29 16:31 20:28 WBC RBC Hgb Hct MCV MCH MCHC RDW Plt Count MPV Prelim Diff (Auto) Neut % (Auto) Lymph % (Auto) [place] % (Auto) Eos % (Auto) Baso % (Auto) Neut # (Auto) Lymph # (Auto) [place] # (Auto) Eos # (Auto) Baso # (Auto) WBC Differential Seg Neuts % (Manual) Band Neuts % (Manual) Lymphocytes % (Manual) Monocytes % (Manual) Eosinophils % (Manual) Metamyelocytes % (Man) Abs Neuts (Manual) Differential Comment Platelet Estimate Platelet Morphology POC Glucose 239 H 128 H 261 H 03/25/18 03/25/18 03/25/18 03:05 03:10 08:03 WBC 2.9 L D RBC 3.48 L Hgb 10.9 L Hct 30.0 L MCV 86.1 MCH 31.2 MCHC 36.2 H RDW 12.1 Plt Count 112 L D MPV 7.6 Prelim Diff (Auto) Slide review pending Neut % (Auto) 49.0 Lymph % (Auto) 34.4 [place] % (Auto) 14.0 H Eos % (Auto) 2.0 Baso % (Auto) 0.6 Neut # (Auto) 1.4 L Lymph # (Auto) 1.0 [place] # (Auto) 0.4 Eos # (Auto) 0.1 Baso # (Auto) 0.0 WBC Differential Manual diff final Seg Neuts % (Manual) 42 Band Neuts % (Manual) 5 Lymphocytes % (Manual) 40 Monocytes % (Manual) 11 H Eosinophils % (Manual) 1 Metamyelocytes % (Man) 1 Abs Neuts (Manual) 1.4 L Differential Comment . Platelet Estimate Low L Platelet Morphology Normal POC Glucose 177 H 210 H Culture Results: Microbiology 03/21/18 22:15 Aerobic Blood Culture - Preliminary Blood - Peripheral No growth in 3 days Anaerobic Blood Culture - Preliminary No growth in 3 days 03/21/18 22:05 Aerobic Blood Culture - Preliminary Blood - Peripheral No growth in 3 days Anaerobic Blood Culture - Preliminary No growth in 3 days Medications: Active Medications Generic Name Dose Route Start Last Admin Trade Name Freq PRN Reason Stop Dose Admin Clotrimazole 10 mg 03/23/18 10:00 03/25/18 09:01 Mycelex Lupe BUCCAL 10 mg 5 TIMES A DAY MICHELLE Administration Enoxaparin Sodium 40 mg 03/22/18 06:00 03/25/18 06:19 Lovenox Inj SQ 40 mg Q24H MICHELLE Administration Sodium Chloride 1,000 mls @ 70 mls/hr 03/22/18 01:00 03/25/18 00:14 Ns Inj IV.CONT Not Given .[id number] MICHELLE Insulin Aspart 0 unit 03/22/18 03:00 03/25/18 09:08 Novolog Insulin Correctional Sugar Inj SQ 3 unit ACHS AND 3AM MICHELLE Administration Protocol Lidocaine HCl 15 ml 03/24/18 12:32 03/24/18 17:31 Xylocaine 2% Viscous SWISH-SPIT 15 ml Q4H PRN Administration mucositis Morphine Sulfate 4 mg 03/22/18 14:13 03/25/18 09:00 Morphine Inj IV.PUSH 4 mg Q4H PRN Administration BREAKTHROUGH PAIN Ondansetron HCl 4 mg 03/22/18 00:51 03/22/18 17:13 Zofran Inj IV.PUSH 4 mg Q6H PRN Administration NAUSEA OR VOMITING Prochlorperazine Maleate 10 mg 03/22/18 19:35 03/24/18 05:18 Compazine PO 10 mg Q6H PRN Administration NAUSEA OR VOMITING Senna/Docusate Sodium 1 tab 03/22/18 09:00 03/25/18 09:01 Lucrecia-Colace PO 1 tab BID MICHELLE Administration Sodium Chloride 2 ml 03/22/18 09:00 03/25/18 09:07 Ns Flush IV.FLUSH 2 ml BID MICHELLE Administration Tramadol HCl 50 mg 03/22/18 19:34 03/25/18 06:17 Ultram PO 50 mg Q8H PRN Administration HEADACHE Objective Remarks: GENERAL: Well-nourished, well-developed female patient. SKIN: Pale, warm and dry. HEAD: Normocephalic. EYES: No scleral icterus. No injection or drainage. PERRLA. MOUTH: Mucous membranes dry, pale. Ulcerations noted to left upper and lower gums. NECK: Supple, trachea midline. CARDIOVASCULAR: +S1/S2 without murmurs. RESPIRATORY: Anterior breath sounds clear and equal bilaterally. Nonlabored at rest. GASTROINTESTINAL: Abdomen rounded, soft, non-tender, nondistended. EXTREMITIES: No cyanosis, or edema. MUSCULOSKELETAL: Adequate muscle tone. NEUROLOGICAL: No obvious focal deficit. Awake, alert, and oriented x3. Equal strength bilaterally. PSYCHIATRIC: Appropriate mood and affect; insight and judgment normal. Assessment/Plan - Plan This is a pleasant 47-year-old female patient with invasive moderately differentiated ductal carcinoma, grade 2, ER/N[place] positive, HER-2 negative. Status post adjuvant chemotherapy with Adriamycin and Cytoxan. Patient admitted to the hospital with neutropenic fever and thrombocytopenia. Plan: 1. Neutropenic, improving ANC 1400. Afebrile. Neulasta given outpatient prior to admission. Blood cultures have remained negative. 2. Mucositis, continue clotrimazole troches and viscous lidocaine. 3. Headache, patient reports her typical migraine headache. Neurologically intact. Status post morphine. Advised she may resume her normal headache medications once discharged home. 4. Patient cleared for discharge from an oncology standpoint. She should follow-up in the clinic tomorrow. She will call the office today to arrange appointment
[2018-03-25 12:04] VITALS: PULSE 86; RESP 18
[2018-03-25] MEDS ORDERED: Nystatin/Diphenhydramine/Lidocaine Mouthwash (Adult) 120 ML Botttle SWISH-SWAL SCH (13:00)
== END 2018-03-25 11:33 | disposition home or self-care (01) | DRG 810 ==
LOC: NEPE 20:48 → NEDA 23:20 → N06 03-22 02:45 → HCIN 03-22 18:45
PROVIDERS: ADMIT Hospitalist; ATTEND Hospitalist
CPT/HCPCS: 71010; 71045; 80048; 80053; 81001; 82948; 82962; 83605; 83690; 83735; 85025; 87040; 87275; 87276; 87804; 90765; 93005; 96365; 99285; J0692; J1650; J1815; J2270; J2405; J7030; Q0164